=== PATIENT | female | born 1965 | race Caucasian/White ===

== ENCOUNTER 2019-07-22 18:45 | Outpatient (CLI) | payer BC | END 2019-07-22 18:46 | disposition critical access hospital (66) | LOC: EMS 18:45 | PROVIDERS: ATTEND Surgery | DX: R19.8 Other specified symptoms and signs involving the digestive system and abdomen (principal) | CPT/HCPCS: A0425; A0427 ==

== ENCOUNTER 2019-07-22 19:03 | Emergency (ER) | payer BC ==
[2019-07-22] MEDS ORDERED: MAG HYDROX/AL HYDROX/SIMETH 30 ML UDC PO STA (19:19)
[2019-07-22] MEDS ORDERED: SUCRALFATE 1 GM/10 ML UDC PO STA (19:19)
--- NOTE | 2019-07-22 19:34 | ED Physician Documentation ---
History of Present Illness - Stated complaint Stated Complaint: THROAT PAIN - Chief complaint Chief Complaint: Heent - History obtained from History obtained from: Patient - History of Present Illness Timing: Today Pain level max: 0 Pain level now: 0 - Additonal information Additional information: 54-year-old female states that she was started on azithromycin for potential tooth infection. She states that it turned out she was allergic to the metal and a crown on her tooth. The crown was removed yesterday. A plastic cap was placed. Today she felt a burning sensation in her throat. She also felt her heart racing. Called 911. No difficulty breathing. Review of Systems Constitutional: denies: Fever, Chills Nose: denies: Rhinorrhea / runny nose, Congestion Throat: denies: Sore throat Respiratory: denies: Cough GI: denies: Nausea, Vomiting, Diarrhea Skin: denies: Rash Musculoskeletal: denies: Neck pain, Back pain Neurologic: denies: Focal weakness, Numbness, Headache PD PAST MEDICAL HISTORY - Past Medical History Past Medical History: Yes Psych: Anxiety - Present Medications Home Medications: Ambulatory Orders Medication Instructions Recorded Confirmed Acetaminophen [Tylenol Extra 1 tab PO Q4HR 07/22/19 07/22/19 Strength] Alprazolam [Xanax] 0.5 mg PO QPM 07/22/19 07/22/19 Hydrocodone/Acetaminophen 1 tab PO QPM PRN 07/22/19 07/22/19 [Hydrocodone-Acetamin 5-325 mg] - Allergies Allergies/Adverse Reactions: Allergies Allergy/AdvReac Type Severity Reaction Status Date / Time aspirin Allergy Edema Verified 07/22/19 19:15 iodine Allergy Anaphylaxis Verified 07/22/19 19:15 latex Allergy Rash Verified 07/22/19 19:15 Penicillins Allergy Nausea Verified 07/22/19 19:15 Sulfa (Sulfonamide Allergy Hives Verified 07/22/19 19:15 Antibiotics) - Living Situation Living Situation: reports: With family Living Arrangement: reports: At home - Social History Does the pt have substance abuse?: No - Family History Family history: reports: Non contributory PD ED PE NORMAL - Vitals Vital signs reviewed: Yes - General General: Alert and oriented X 3, No acute distress, Well developed/nourished - HEENT HEENT: PERRL, Moist mucous membranes, Pharynx benign, Other (normal intraoral exam.) - Neck Neck: Supple, no meningeal sign - Cardiac Cardiac: RRR, Strong equal pulses - Respiratory Respiratory: No respiratory distress, Clear bilaterally - Abdomen Abdomen: Soft, Non tender, Non distended - Derm Derm: Warm and dry, No rash - Extremities Extremities: No edema - Neuro Neuro: Alert and oriented X 3 - Psych Psych: Normal mood, Normal affect Results - Vitals Vitals: Vital Signs - 24 hr 07/22/19 07/22/19 07/22/19 19:07 19:43 20:26 Temperature 37.2 C Heart Rate 100 80 78 Respiratory 18 14 12 Rate Blood Pressure 144/92 H 148/118 H 136/97 H O2 Saturation 100 99 95 Oxygen O2 Source Room air - EKG (time done) 1924 Rate: Rate (enter#) (84) Rhythm: NSR [place]: Normal Intervals: Normal [place] QRS: Normal Ischemia: Normal ST segments PD MEDICAL DECISION MAKING - ED course Complexity details: reviewed results, re-evaluated patient, considered differential, d/w patient, d/w family ED course: Patient presents to the emergency department what appears to be GERD. Symptoms felt much better after Maalox. We will have her stop the azithromycin. She is well-appearing, nontoxic. No anaphylaxis. Patient counseled regarding signs and symptoms for which I believe and urgent re-evaluation would be necessary. Patient with good understanding of and agreement to plan and is comfortable going home at this time This document was made in part using voice recognition software. While efforts are made to proofread this document, sound alike and grammatical errors may occur. Patient states that she is on the azithromycin for a possible tooth infection, she states the oral surgeon said there is no dental infection and that the crown was causing her symptoms. Departure - Departure Disposition: 01 Home, Self Care Clinical Impression: GERD (gastroesophageal reflux disease) Qualifiers: Esophagitis presence: with esophagitis Qualified Code(s): K21.0 - Gastro-esop hageal reflux disease with esophagitis Condition: Good Instructions: ED GERD Follow-Up: Efra Garsia DO [Primary Care Provider] - Within 1 week Comments: Return if you worsen. Stop the azithromycin. This should improve over the next 24 hours. Follow-up with your doctor for further care. Discharge Date/Time: 07/22/19 20:37
[2019-07-22 20:28] VITALS: BP 136/97
== END 2019-07-22 20:37 | disposition home or self-care (01) ==
LOC: EDUNIT# → ED 19:03
DX: K21.0 Gastro-esophageal reflux disease with esophagitis (principal); R00.2 Palpitations; Z98.818 Other dental procedure status
CPT/HCPCS: 93005; 99284; A9270